=== PATIENT | male | born 1960 | race Hispanic/Latino ===

== ENCOUNTER 2016-07-16 13:49 | Emergency (ER) | payer OTHER ==
[2016-07-16 14:57] VITALS: BMI 22.8
[2016-07-16 15:23] LABS: BASO # 0.1 K/uL (0.0-0.2); BASO % 0.9 % (0.0-2.0); EOS # 0.1 K/uL (0.0-0.7); EOS % 2.1 % (0.0-4.0); HEMATOCRIT 36.7 % (35.0-51.0); LYMPH # 1.3 K/uL (1.0-4.3); MEAN CORPUSCULAR HEMOGLOBIN 31.1 pg (27.0-31.0); MEAN CORPUSCULAR HGB CONC 33.8 g/dL (33.0-37.0); MEAN PLATELET VOLUME 8.4 fL (7.2-11.7); MONO # 0.6 K/uL (0.0-0.8); MONO % 8.8 % (0.0-10.0); RED CELL DISTRIBUTION WIDTH 13.8 % (11.5-14.5); WHITE BLOOD COUNT 6.6 K/uL (4.8-10.8)
[2016-07-16 15:26] LABS: CHLORIDE 99 mmol/L (98-107); SODIUM 132 mmol/L (132-148)
[2016-07-16 15:27] LABS: POTASSIUM 4.7 mmol/L (3.6-5.2)
[2016-07-16 15:29] LABS: ALB/GLOB RATIO 0.9 (1.0-2.1); ALKALINE PHOSPHATASE 249 U/L (38-126); AST/SGOT 66 U/L (17-59); BILIRUBIN,TOTAL 1.9 mg/dL (0.2-1.3); BLOOD UREA NITROGEN 19 mg/dL (9-20); CARBON DIOXIDE 24 mmol/L (22-30); GFR AFRICAN-AMERICAN > 60; TOTAL PROTEIN 7.9 g/dL (6.3-8.3)
[2016-07-16 15:30] LABS: ALT/SGPT 31 U/L (21-72); GLUCOSE,RANDOM 325 mg/dL (75-110)
--- NOTE | 2016-07-16 16:03 | CT ---
PROCEDURE: CT scan brain dated 07/16/2016 HISTORY: R/O Bleed COMPARISON: None available. TECHNIQUE: Axial computed tomography images were obtained through the head/brain without intravenous contrast. Radiation dose: Total exam DLP = 1057.92 mGy-cm. This CT exam was performed using one or more of the following dose reduction techniques: Automated exposure control, adjustment of the mA and/or kV according to patient size, and/or use of iterative reconstruction technique. FINDINGS: HEMORRHAGE: No acute parenchymal, subarachnoid nor extra-axial hemorrhage. BRAIN: Mild -moderate generalized volume loss. The There may be some minimal chronic periventricular white matter ischemic changes vague area low attenuation left posterior frontal subcortical region best seen on axial image number [id number] could represent low-attenuation white matter artifact however possibility of a small age-indeterminate ischemic focus cannot be excluded. VENTRICLES: Prominent ventricles due to mild atrophy however there is no evidence of obstructive type hydrocephalus. CALVARIUM: No acute calvarial fractures. . PARANASAL SINUSES: Unremarkable as visualized. No significant inflammatory changes. MASTOID AIR CELLS: Unremarkable as visualized. No inflammatory changes. OTHER FINDINGS: Orbits and contents unremarkable. IMPRESSION: No acute intracranial hemorrhage. Minimal chronic periventricular white matter ischemic changes. Vague area low attenuation left posterior frontoparietal subcortical white matter could represent artifact however the possibility of a. age indeterminate
--- NOTE | 2016-07-16 16:24 | C.PDOC ---
History Of Present Illness 55-year-old male, PMHx includes Diabetes and Hypertension, presents to the emergency department, with complaints of gait disturbance, that has worsened over the past two weeks. Patient went to Dr Avitai's office this morning, where he was noted to have a slurred speech and right-facial droop, resulting in him being sent to the ED for evaluation. Patient notes that symptoms are ongoing x2 weeks. No headache, chest pain or visual disturbances. Time Seen by Provider: 07/16/16 14:06 Chief Complaint (Nursing): Dizziness/Lightheaded History Per: Patient History/Exam Limitations: no limitations Onset/Duration Of Symptoms: Days Current Symptoms Are (Timing): Still Present Past Medical History Reviewed: Historical Data, Nursing Documentation, Vital Signs Vital Signs: Last Vital Signs Temp 97.7 F 07/16/16 14:00 Pulse 69 07/16/16 18:50 Resp 18 07/16/16 18:50 BP 149/79 07/16/16 18:50 Pulse Ox 98 07/16/16 18:50 - Medical History PMH: Diabetes, HTN Surgical History: No Surg Hx Family History: States: Unknown Family Hx - Social History Hx Alcohol Use: No Hx Substance Use: No - Immunization History Hx Tetanus Toxoid Vaccination: Yes Hx Influenza Vaccination: (unk) Hx Pneumococcal Vaccination: No Review Of Systems Except As Marked, All Systems Reviewed And Found Negative. Constitutional: Negative for: Fever, Chills Cardiovascular: Negative for: Chest Pain, Palpitations Respiratory: Negative for: Shortness of Breath Gastrointestinal: Negative for: Nausea, Vomiting Skin: Negative for: Rash Neurological: Positive for: Change in Speech, Other (GAIT DISTURBANCE. FACIAL DROOP. SPEECH CHANGES. ). Negative for: Altered Mental Status Physical Exam - Physical Exam Appears: Non-toxic, No Acute Distress Skin: Warm, Dry, No Rash Head: Atraumatic, Normacephalic Eye(s): bilateral: Normal Inspection, PERRL, EOMI Nose: Normal Oral Mucosa: Moist Lips: Normal Appearing Neck: Normal ROM Cardiovascular: Rhythm Regular Respiratory: Normal Breath Sounds, No Accessory Muscle Use Back: Normal Inspection Extremity: Normal ROM Neurological/Psych: Other (right facial droop. Strength intact B/L extremities. ) ED Course And Treatment - Laboratory Results Result Diagrams: 07/16/16 15:14 07/16/16 15:14 Lab Interpretation: Abnormal (Elevated glucose 325, slight thrombocytopenia, elevated AST c/w histtory of alcohol abuse) O2 Sat by Pulse Oximetry: 99 - CT Scan/US Head Other Rad Studies (CT/US): Read By Radiologist, Radiology Report Reviewed CT/US Interpretation: Accession No. : [id number]. Patient Name / ID : SHAY NICK / [id number]. Exam Date : 07/16/2016 15:27:38 ( Approved ). Study Comment : Sex / Age : M / 55Y. Creator : Ventura Rogers MD. Dictator : Ventura Rogers MD. Tube Blower : Line Palletizer : Ventura Rogers MD. Approver2 : Report Date : 07/16/2016 16:01:59. My Comment : . PROCEDURE: CT scan brain dated 07/16/2016. HISTORY: R/O Bleed. COMPARISON: None available. TECHNIQUE: Axial computed tomography images were obtained through the head/brain without intravenous contrast. Radiation dose: Total exam DLP = 1057.92 mGy-cm. This CT exam was performed using one or more of the following dose reduction techniques: Automated exposure control, adjustment of the mA and/or kV according to patient size, and/or use of iterative reconstruction technique. FINDINGS: HEMORRHAGE: No acute parenchymal, subarachnoid nor extra-axial hemorrhage. BRAIN: Mild -moderate generalized volume loss. The There may be some minimal chronic periventricular white matter ischemic changes vague area low attenuation left posterior frontal subcortical region best seen on axial image number [id number] could represent low- attenuation white matter artifact however possibility of a small age- indeterminate ischemic focus cannot be excluded. VENTRICLES: Prominent ventricles due to mild atrophy however there is no evidence of obstructive type hydrocephalus. CALVARIUM: No acute calvarial fractures. . PARANASAL SINUSES: Unremarkable as visualized. No significant inflammatory changes. MASTOID AIR CELLS: Unremarkable as visualized. No inflammatory changes. OTHER FINDINGS: Orbits and contents unremarkable. IMPRESSION: No acute intracranial hemorrhage. Minimal chronic periventricular white matter ischemic changes. Vague area low attenuation left posterior frontoparietal subcortical white matter could represent artifact however the possibility of a. age indeterminate Reevaluation Time: 17:00 Reassessment Condition: Improved - Physician Consult Information Physician Contacted: Sarwat Avitia Outcome Of Conversation: He knows the patient well. He is a known alcoholic who is noncompliant with his insulin and hypertensive medication. He will follow up in the office. Disposition Counseled Patient/Family Regarding: Studies Performed, Diagnosis, Need For Followup - Disposition Referrals: Sarwat Avitia MD [Medical Doctor] - Disposition: HOME/ ROUTINE Disposition Time: 17:02 Condition: IMPROVED Instructions: Diabetes Mellitus Type 1 in Adults (ED), Ischemic Stroke (DC), Hypertension (ED) - Clinical Impression Clinical Impression: Ischemic stroke, Uncontrolled diabetes mellitus, Hypertension - Scribe Statement The provider has reviewed the documentation as recorded by the Jefry Champion All medical record entries made by the Scaribwendy were at my direction and personally dictated by me. I have reviewed the chart and agree that the record accurately reflects my personal performance of the history, physical exam, medical decision making, and the department course for this patient. I have also personally directed, reviewed, and agree with the discharge instructions and disposition.
[2016-07-16] MEDS ORDERED: Sodium Chloride 0.9% 1,000 ML IV ONE (16:50)
[2016-07-16] MEDS ORDERED: Sodium Chloride 0.9% 1,000 ML ONE (16:58)
[2016-07-16 20:18] VITALS: BP 154/76; PULSE 62; RESP 16; TEMP 98.2; O2SAT 98
--- NOTE | 2016-07-17 16:45 | CARD ---
APPROVED REPORT EKG Measurement Heart [id number] CT 132P31 [id number] <Conclusion> Normal sinus rhythm Normal ECG
== END 2016-07-16 20:17 | disposition home or self-care (01) ==
LOC: C.ER 13:49
DX: I67.82 Cerebral ischemia (principal); R47.81 Slurred speech; R29.810 Facial weakness; I10 Essential (primary) hypertension; F10.20 Alcohol dependence, uncomplicated; E10.9 Type 1 diabetes mellitus without complications; Z79.4 Long term (current) use of insulin
CPT/HCPCS: 70450; 80053; 82948; 85025; 93005; 96360; 99285; J7040